=== PATIENT | female | born 1945 | race Caucasian/White ===

== ENCOUNTER 2018-06-25 08:33 | Day surgery (SDC) | payer OTHER ==
[~2018-06-25 08:33] MED LIST: CA CHLORIDE 10% 10 ML SYRINGE; CEFAZOLIN 1 GM INJ; CEFAZOLIN 2 GM/50 ML (PMX) 50 ML IVPB; DEXAMETHASONE 4 MG/ML 1 ML INJ; FENTAnyl 50 MCG/ML VIAL; LIDOCAINE 2% (SDV) 5 ML INJ; METOCLOPRAMIDE 10 MG INJ; MIDAZOLAM 1 MG/ML 2 ML INJ; ONDANSETRON 4 MG INJ; PROPOFOL 20 ML; ROCURONIUM 50 MG INJ; ROPIVACAINE 0.5 % 30 ML VIAL; SUCCINYLCHOLINE CHLORIDE 100 MG/5 ML SYG IV; SUGAMMADEX SODIUM 200 MG/2 ML VIAL IV; THROMBIN 5000 UNIT VIAL; hydrALAzine 20 MG INJ
[2018-06-25] MEDS ORDERED: SUGAMMADEX SODIUM 200 MG/2 ML VIAL IV (08:34)
[2018-06-25] MEDS: hydrALAzine 20 MG INJ IV (09:24)
[2018-06-25] MEDS: DEXAMETHASONE 1 MG TAB PO (09:46)
[2018-06-25] MEDS: GABAPENTIN 300 MG CAP PO (09:46)
[2018-06-25] MEDS ORDERED: DIPHENHYDRAMINE 50 MG INJ IV (10:00)
[2018-06-25] MEDS ORDERED: HYDROmorphONE 1 MG/5 ML IV SYRINGE IV (10:00)
[2018-06-25] MEDS ORDERED: LEVALBUTEROL (NEB) 1.25 MG/0.5 ML AMP HHN (10:00)
[2018-06-25] MEDS ORDERED: FENTAnyl 50 MCG/ML VIAL IV ×2 (10:00)
[2018-06-25] MEDS ORDERED: hydrALAzine 20 MG INJ IV (10:00)
[2018-06-25] MEDS ORDERED: MEPERIDINE 25 MG INJ IV (10:00)
[2018-06-25] MEDS ORDERED: ONDANSETRON 4 MG INJ IV (10:00)
[2018-06-25] MEDS ORDERED: LABETALOL HCL 20MG INJ IV (10:00)
[2018-06-25] MEDS: POLYMYXIN/BACITRACIN 1L IRRIG IRR (10:20)
[2018-06-25] MEDS: BUPIVACAINE 0.5% (SDV) 30 ML, morphine SULFATE (PF) 8 MG, EPINEPHrine 0.3 MG, KETOROLAC... IRR (10:20)
[2018-06-25] MEDS: HYDROmorphONE 1 MG/5 ML IV SYRINGE IV (11:53)
[2018-06-25] MEDS: HYDROCODONE/APAP (5/325) TAB PO (13:30)
[2018-06-26] MEDS ORDERED: TRANEXAMIC ACID 1,000 MG in DEXTROSE 5% 100 ML IVPB (08:00)
== END 2018-06-25 13:54 | disposition home or self-care (01) ==
LOC: SDS 08:33
DX: M75.101 Unspecified rotator cuff tear or rupture of right shoulder, not specified as traumatic (principal); M25.811 Other specified joint disorders, right shoulder; M19.011 Primary osteoarthritis, right shoulder; S46.211D Strain of muscle, fascia and tendon of other parts of biceps, right arm, subsequent encounter; X58.XXXD Exposure to other specified factors, subsequent encounter; I10 Essential (primary) hypertension; E78.2 Mixed hyperlipidemia; E11.69 Type 2 diabetes mellitus with other specified complication
CPT/HCPCS: 29824; 82962; 86999